=== PATIENT | male | born 1975 | race Caucasian/White ===

== ENCOUNTER → 2024-10-23 07:39 | Outpatient (REF) | payer BC, SELFPAY | LOC: EMG 07:39 | PROVIDERS: ATTENDING PHYSICIAN Student in an Organized Health Care Education/Training Program; FAMILY PHYSICIAN Family Medicine | DX: R20.0 Anesthesia of skin (principal); M25.579 Pain in unspecified ankle and joints of unspecified foot; M79.673 Pain in unspecified foot; R20.2 Paresthesia of skin; R73.03 Prediabetes | CPT/HCPCS: 95886; 95910 ==